=== PATIENT | female | born 1970 | race Caucasian/White ===

== ENCOUNTER 2017-10-04 10:03 | Outpatient (CLI) | payer BC | END 2017-10-04 10:04 | disposition home or self-care (01) | LOC: BICMAMMO 10:03 | PROVIDERS: ATTEND Family Medicine | DX: Z12.31 Encounter for screening mammogram for malignant neoplasm of breast (principal) | CPT/HCPCS: 77063; 77067 ==

== ENCOUNTER 2017-11-06 12:14 | Outpatient (CLI) | payer BC | END 2017-11-06 12:15 | disposition home or self-care (01) | LOC: BICRAD 12:14 | PROVIDERS: ATTEND Family Medicine | DX: R05 Cough (principal) | CPT/HCPCS: 71046 ==

== ENCOUNTER 2018-07-11 07:48 | Outpatient (CLI) | payer BC ==
--- NOTE | 2018-07-11 09:05 | ULT ---
SONOGRAM RIGHT UPPER QUADRANT: Date: 07/11/18 HISTORY: Right upper quadrant pain. FINDINGS: Gallbladder has a normal appearance. Common duct is 0.4 cm. Liver unremarkable without focal mass or intrahepatic biliary dilatation. No free fluid. IMPRESSION: No evidence of gallstones or biliary obstruction. POS: [facility]
== END 2018-07-11 07:49 | disposition home or self-care (01) ==
LOC: SCSULT 07:48
PROVIDERS: ATTEND Family Medicine
DX: R10.11 Right upper quadrant pain (principal)
CPT/HCPCS: 76700

== ENCOUNTER 2018-08-08 07:34 | Outpatient (CLI) | payer BC ==
--- NOTE | 2018-08-08 13:25 | NM ---
RADIONUCLIDE HEPATOBILIARY SCAN AND GALLBLADDER EJECTION FRACTION: Date: 08/08/18 HISTORY: Right upper quadrant pain. FINDINGS: Early images show physiologic uptake of radiotracer throughout the hepatic parenchyma. Gallbladder fi rst imaged at 5 minutes. Uptake is apparent within the small bowel at 7 minutes. After administration of 8 oz fatty meal, there is excretin of radiotracer from the gallbladder to the small bowel. Ejecti on fraction calculated at 100%. IMPRESSION: Normal hepatobiliary scan. Normal gallbladder ejection fraction. POS: [facility]
== END 2018-08-08 07:35 | disposition home or self-care (01) ==
LOC: NM 07:34
PROVIDERS: ATTEND Internal Medicine Gastroenterology
DX: R10.11 Right upper quadrant pain (principal)
CPT/HCPCS: 78227; A9537

== ENCOUNTER 2018-11-01 10:01 | Outpatient (CLI) | payer BC | END 2018-11-01 10:02 | disposition home or self-care (01) | LOC: BICMAMMO 10:01 | PROVIDERS: ATTEND Family Medicine | DX: Z12.31 Encounter for screening mammogram for malignant neoplasm of breast (principal) | CPT/HCPCS: 77063; 77067 ==

== ENCOUNTER 2019-07-02 10:43 | Inpatient (IN) | payer BC ==
[2019-07-02 12:05] LABS: Hemoglobin 11.5 g/dL (12.0-16.0); Mean Corpuscular HGB CONC 34.2 g/dL (32.0-36.0); Mean Corpuscular Hemoglobin 31.1 pg (27.0-31.0); Mean Corpuscular Volume 90.9 fL (78.0-98.0); Mean Platelet Volume 8.4 fL (7.4-10.4); Platelet Count 126 thou/uL (130-400); RBC Distribution Width 12.6 % (11.5-14.5); Red Blood Cell (RBC) Count 3.69 mill/uL (4.20-5.40); White Blood Cell (WBC) Count 18.3 thou/uL (4.8-10.8)
[2019-07-02 12:22] LABS: Band 39 % (5-11); Lymphocytes 9 % (21-51); MDiff Complete? YES; Monocytes 1 % (0-10); Neutrophil 51 % (42-75); Platelet Morphology Comment Appears Decreased; RBC Morphology Normal
[2019-07-02 12:29] LABS: ALT (SGPT) 29 U/L (8-55); AST (SGOT) 57 U/L (5-34); Albumin 3.5 g/dL (3.5-5.0); Alkaline Phosphatase 91 U/L (40-110); Anion Gap 16 mmol/L (10-20); BUN (Urea Nitrogen) 31 mg/dL (7.0-18.7); Calc. Creatinine Clearance 0 mL/min (70-130); Calcium 8.4 mg/dL (7.8-10.44); Carbon Dioxide 22 mmol/L (22-29); Chloride 97 mmol/L (98-107); Estimated GFR-MDRD 37; Globulin 3.7 g/dL (2.4-3.5); Glucose 122 mg/dL (70-105); Lipase 13 U/L (8-78); Potassium 3.1 mmol/L (3.5-5.1); Protein, Total 7.2 g/dL (6.0-8.3); Sodium 132 mmol/L (136-145)
[2019-07-02] MEDS ORDERED: MEROPENEM 1 GM/50 ML 1 GM in Premix Bag 1 BAG IVPB SCH (12:45)
[2019-07-02] MEDS ORDERED: Morphine 4 MG/ML VIAL ONE (12:49)
[2019-07-02] MEDS ORDERED: Ondansetron PF 4 MG/2 ML Vial ONE (12:49)
[2019-07-02 13:09] LABS: Bacteria/HPF 4+ HPF (None Seen); Bilirubin Negative (Negative); Blood, Urine 3+ (Negative); Clarity Turbid (Clear); Glucose, Urine (Dipstick) Normal (Negative); Leukocyte 500 Leu/uL (Negative); Nitrite Negative (Negative); Protein, Urine (Dipstick) 50 mg/dL (Neg-Trace); Squamous Epithelial 0-3 HPF (0-3); Urobilinogen Normal mg/dL (Less than 2); WBC/HPF 21-50 HPF (0-3)
--- NOTE | 2019-07-02 13:24 | CT ---
CT ABDOMEN AND PELVIS WITHOUT CONTRAST: 07/02/2019 PROVIDED CLINICAL HISTORY: Abdominal pain. FINDINGS: The visualized lung bases are free of significant opacity. There is a 1.1 cm inferior pole left renal calculus. No additional urinary tract calculi are evident. There is mild fullness of the left renal collecting system and mild asymmetric fullness of the left proximal ureter. There is a phlebolith involving the left mid abdomen, which is definitely separate f rom the ureter. There are fat stranding changes about the left kidney. The solid abdominal organs are suboptimally evaluated in the absence of IV contrast material but demo nstrate an otherwise unremarkable unenhanced CT appearance. There is no bowel dilatation, additional inflammatory fat stranding, free fluid or free air apparent. There is no evidence for appendicitis. There is a mixed density, fat-containing mass in the right adnexal region, measuring approximately 5. 4 cm, compatible with dermoid. The osseous structures demonstrate no concerning lytic or blastic lesions. IMPRESSION: 1. A 1.1 cm inferior pole left renal calculus. 2. Inflammatory changes involving the left kidney. Findings could relate to a recently passed calculu s, given the mild asymmetric renal pelvic and ureteral dilatation on the left. Other etiologies inclu ding infection should be considered. 3. A 5.4 cm right ovarian dermoid. Non-emergent PUTTIER consultation is recommended. POS: [facility]
--- NOTE | 2019-07-02 13:34 | RAD ---
PORTABLE CHEST: Date: 07/02/19 PROVIDED CLINICAL HISTORY: Infection. FINDINGS: Comparison with 11/06/17. Cardiac and mediastinal silhouette is within normal limits. No focal consolidation, pleural fluid, or pneumothorax apparent. IMPRESSION: No evidence for an acute cardiopulmonary process. POS: [facility]
--- NOTE | 2019-07-02 13:54 | PDOC.FPRHP ---
- History of Present Illness Chief Complaint: back pain, fever History of Present Illness: 48 y/o F no PMHx presents to the ED complaining of L back pain that radiates to her groin and associated fevers since Sunday. She reports that since November she has had abnormal menstrual bleeding that is heavier than usual and irregular, but it has never been associated with pain or fevers until now. She reports that she has been routinely passing blood clots. She said her fever got up to 101.9 and improved with ibuprofen. She got a pelvic and RUQ abd US done yesterday along with blood work. The pelvic US showed thickened endometrium to 1.6 cm with blood products. The RUQ US was normal. Blood work showed a leukocytosis. ED Course: She was evaluated in the ED and given 3L NS, morphine, zofran, meropenem. - Allergies/Adverse Reactions Allergies Allergy/AdvReac Type Severity Reaction Status Date / Time cephalexin [From Keflex] Allergy Verified 07/02/19 12:32 - Home Medications Medication Instructions Recorded Confirmed Type No Known 07/02/19 07/02/19 History - History PMHx: None PSHx: section x2 FHx: Father - colon cancer and kidney stones Social: Denies tobacco, EtOH, or drug use. - Review of Systems General: reports: fever/chills. denies: weight/appetite/sleep changes Eyes: denies: eye pain, vision changes ENT: denies: nasal congestion, rhinorrhea Respiratory: denies: cough, shortness of breath Cardiovascular: denies: chest pain, edema Gastrointestinal: reports: nausea, vomiting, abdominal pain Genitourinary: denies: dysuria, polyuria Skin: denies: rashes, lesions Musculoskeletal: denies: pain, swelling Neurological: denies: numbness, weakness Psychological: denies: anxiety, depression - Vital signs BP: 91/64, Pulse: 95, Resp: 18, Pain: 2, O2 sat: 100 on Room Air - Physical Exam Constitutional: NAD, awake, alert and oriented HEENT: normocephalic and atraumatic, conjunctiva clear, grossly normal vision, grossly normal hearing, other (dry mucous membranes) Neck: FROM, no LAD Heart: RRR, normal S1/S2, no murmurs/rubs/gallops, pulses present, no edema Lungs: CTAB, no respiratory distress, good air movement, no wheezing Abdomen: soft, no masses/distention, other (TTP in suprapubic and LLQ with + L CVAT) Musculoskeletal: normal structure, normal tone Neurological: no focal deficit, normal sensation Skin: good turgor, capillary refill <2 seconds Psychiatric: normal mood and affect, good judgment and insight FMR H&P: Results - Labs Result Diagrams: 07/02/19 11:43 07/02/19 11:43 Lab results: WBC 18.3 thou/uL (4.8-10.8) H 07/02/19 11:43 Hgb 11.5 g/dL (12.0-16.0) L 07/02/19 11:43 Hct 33.5 % (36.0-47.0) L 07/02/19 11:43 MCV 90.9 fL (78.0-98.0) 07/02/19 11:43 Plt Count 126 thou/uL (130-400) L 07/02/19 11:43 Band Neuts % (Manual) 39 % (5-11) H 07/02/19 11:43 Sodium 132 mmol/L (136-145) L 07/02/19 11:43 Potassium 3.1 mmol/L (3.5-5.1) L 07/02/19 11:43 Chloride 97 mmol/L (98-107) L 07/02/19 11:43 Carbon Dioxide 22 mmol/L (22-29) 07/02/19 11:43 BUN 31 mg/dL (7.0-18.7) H 07/02/19 11:43 Creatinine 1.50 mg/dL (0.6-1.1) H 07/02/19 11:43 Glucose 122 mg/dL (70-105) H 07/02/19 11:43 Lactic Acid 1.4 mmol/L (0.5-2.2) 07/02/19 11:43 Calcium 8.4 mg/dL (7.8-10.44) 07/02/19 11:43 Total Bilirubin 1.0 mg/dL (0.2-1.2) 07/02/19 11:43 AST 57 U/L (5-34) H 07/02/19 11:43 ALT 29 U/L (8-55) 07/02/19 11:43 Alkaline Phosphatase 91 U/L (40-110) 07/02/19 11:43 Serum Total Protein 7.2 g/dL (6.0-8.3) 07/02/19 11:43 Albumin 3.5 g/dL (3.5-5.0) 07/02/19 11:43 Lipase 13 U/L (8-78) 07/02/19 11:43 Urine Ketones 10 mg/dL (Negative) A 07/02/19 12:45 Urine Blood 3+ (Negative) A 07/02/19 12:45 Urine Nitrite Negative (Negative) 07/02/19 12:45 Ur Leukocyte Esterase 500 Efra/uL (Negative) A 07/02/19 12:45 Urine RBC 4-6 HPF (0-3) A 07/02/19 12:45 Urine WBC 21-50 HPF (0-3) A 07/02/19 12:45 Ur Squamous Epith Cells 0-3 HPF (0-3) 07/02/19 12:45 Urine Bacteria 4+ HPF (None Seen) A 07/02/19 12:45 - Radiology Interpretation CT scan - abdomen Status: report reviewed by me Additional comment: 1.1 cm L renal calculus in inferior pole. Inflammatory changes and dilation of L renal pelvis and ureter. 5.4 cm R ovarian dermoid cyst. FMR H&P: A/P - Problem List (1) Sepsis Current Visit: Yes Status: Acute Code(s): A41.9 - SEPSIS, UNSPECIFIED ORGANISM (2) Pyelonephritis Current Visit: Yes Status: Acute Code(s): N12 - TUBULO-INTERSTITIAL NEPHRITIS, NOT SPCF ACUTE OR CHRONIC (3) Abnormal uterine bleeding Current Visit: Yes Status: Acute Code(s): N93.9 - ABNORMAL UTERINE AND VAGINAL BLEEDING, UNSPECIFIED (4) Hyponatremia Current Visit: Yes Status: Acute Code(s): E87.1 - HYPO-OSMOLALITY AND HYPONATREMIA (5) Hypokalemia Current Visit: Yes Status: Acute Code(s): E87.6 - HYPOKALEMIA (6) LUX (acute kidney injury) Current Visit: Yes Status: Acute Code(s): N17.9 - ACUTE KIDNEY FAILURE, UNSPECIFIED (7) Kidney stone on left side Current Visit: Yes Status: Acute Code(s): N20.0 - CALCULUS OF KIDNEY - Plan Sepsis 2/2 Acute L Pyelonephritis s/p 3L NS and meropenem in the ED. UA consistent with infection. Pt appears to have passed a stone. -Consider urology consult if pt decompensates -BCx -UCx -Zosyn -LR @ 125 Abnormal Uterine Bleeding Pt with recent pelvic US showing endometrial thickening and presents with complaint of abnormal bleeding since November. -Consulted Dr. Bynum with [facility] SPECTROMETRY SPECIALIST -Endometrial biopsy -Pt has MASS SPECTROMETRY SPECIALIST consult outpt as well LUX Likely postrenal 2/2 obstructing stone that has now passed. Renal function has improved since yesterday. s/p 3L NS -Will check FeNa -LR @ 125 -Trend -Renally dose medications Hyponatremia Na 132 -Will check urine sodium and creatinine -Monitor Hypokalemia -Will replete and monitor -Check magnesium VTE ppx: SCD's Code Status: Full Disposition/LOS: Admit to Medical. LOS likely 2 days Addendum - Attending - Attending Attestation Date/Time: 07/02/19 0086 I personally evaluated the patient and discussed the management with Dr. Tavera. I agree with the History, Examination, Assessment and Plan documented above with any addition or exceptions noted below. Stable, LUX improved from yesterday. Will monitor status closely and consider uro/nephro consultations if indicated. BP's reassuring and her mentation is very much intact. EMB today with Dr. Bynum, appreciate his input.
--- NOTE | 2019-07-02 17:00 | PDOC.OP ---
Operative Note - Operative Note Operative Note: PRE-OP DIAGNOSIS: Abnormal Uterine Bleeding, Thickened endometrial stripe POST-OP DIAGNOSIS: Same PROCEDURE: endometrial biopsy Performing Physician: Ivelisse Tavera MD Supervising Physician: Moises Bynum MD, Jimbo Puri MD PROCEDURE: A timeout protocol was performed prior to initiating the procedure. Consented patient about procedure and consents were signed and placed on chart. Vaginal speculum was inserted, and the cervix was visualized. The cervix was cleansed with antiseptic solution. The device was inserted through the cervical canal, into the uterine cavity, and up to the fundus. The depth of the uterus was determined with the instrument The instrument was withdrawn as it was rotated. 3 passes were made and tissue placed in formalin and sent to pathology. Followup: The patient tolerated the procedure well without complications. Standard post-procedure care is explained and return precautions are given.
[2019-07-02] MEDS ORDERED: Ketorolac Tromethamine 30 MG/ML VIAL ONE (17:11)
[2019-07-02] MEDS ORDERED: Ondansetron PF 4 MG/2 ML Vial IVP PRN (18:42)
[2019-07-02] MEDS ORDERED: Ondansetron ODT 4 MG TAB SL PRN (18:42)
[2019-07-02] MEDS ORDERED: Piperacillin/Tazobactam 3.375 GM in Sodium Chloride 0.9% 100 ML IVPB SCH ×2 (18:45→23:59)
[2019-07-02] MEDS ORDERED: Acetaminophen 325 MG TAB ONE (18:50)
[2019-07-02] MEDS ORDERED: Potassium Chloride 20 MEQ TAB PO SCH (19:00)
[2019-07-02 19:11] LABS: Creatinine, Urine 47.35 mg/dL (47-110); Sodium, Urine Less than 20 mmol/L (Not Available)
[2019-07-02] MEDS ORDERED: Potassium Chloride 20 MEQ TAB ONE (20:20)
[2019-07-02] MEDS ORDERED: Piperacillin/Tazobactam 3.375 GM VIAL ONE (20:20)
[2019-07-03] MEDS: Lactated Ringer's 1,000 ML IV SCH ×4 (01:15→22:19)
[2019-07-03] MEDS ORDERED: Ondansetron ODT 4 MG TAB SL PRN (01:20)
[2019-07-03] MEDS ORDERED: Acetaminophen 325 MG TAB PO PRN (01:20)
[2019-07-03] MEDS ORDERED: Ondansetron PF 4 MG/2 ML Vial IVP PRN (01:20)
[2019-07-03 02:56] VITALS: BMI 36.4
[2019-07-03] MEDS: Piperacillin/Tazobactam 3.375 GM in Sodium Chloride 0.9% 100 ML IVPB SCH ×4 (03:42→21:31)
[2019-07-03 05:17] LABS: Anion Gap 9 mmol/L (10-20); BUN (Urea Nitrogen) 20 mg/dL (7.0-18.7); Calc. Creatinine Clearance 74 mL/min (70-130); Calcium 7.5 mg/dL (7.8-10.44); Carbon Dioxide 24 mmol/L (22-29); Chloride 103 mmol/L (98-107); Estimated GFR-MDRD 42; Glucose 144 mg/dL (70-105); Potassium 3.6 mmol/L (3.5-5.1); Sodium 132 mmol/L (136-145)
[2019-07-03 05:46] LABS: Band 22 % (5-11); Hemoglobin 9.2 g/dL (12.0-16.0); Lymphocytes 8 % (21-51); MDiff Complete? YES; Mean Corpuscular HGB CONC 33.6 g/dL (32.0-36.0); Mean Corpuscular Hemoglobin 30.9 pg (27.0-31.0); Mean Corpuscular Volume 91.9 fL (78.0-98.0); Mean Platelet Volume 8.2 fL (7.4-10.4); Monocytes 1 % (0-10); Neutrophil 69 % (42-75); Platelet Count 105 thou/uL (130-400); Platelet Morphology Comment Appears Decreased; RBC Distribution Width 12.9 % (11.5-14.5); Red Blood Cell (RBC) Count 2.99 mill/uL (4.20-5.40); White Blood Cell (WBC) Count 13.1 thou/uL (4.8-10.8)
--- NOTE | 2019-07-03 06:14 | PDOC.FM ---
- Subjective Subjective: Pt c/o left sided pain 2/10, radiating to groin. Pt c/o pain located periumbilical. States she still is feeling tired and "crumy," but slightly better. - Objective MAR Reviewed: Yes Vital Signs & Weight: Vital Signs (12 hours) Temp Pulse Resp BP Pulse Ox 07/03/19 03:33 100.2 F H 96 119/58 L 100 07/03/19 01:15 98 07/03/19 01:10 99.6 F 99 16 98 Weight Weight 93.349 kg I&O: 07/01/19 07/02/19 07/03/19 06:59 06:59 06:59 Output Total 550 Balance -550 Result Diagrams: 07/03/19 10:26 07/03/19 04:49 Phys Exam - Physical Examination Constitutional: NAD HEENT: PERRLA, moist MMs, sclera anicteric Neck: no nodes, no JVD, supple, full ROM Respiratory: no wheezing, no rales, no rhonchi, clear to auscultation bilateral Cardiovascular: RRR, no rub 2/6 systolic murmur Gastrointestinal: soft, no distention, positive bowel sounds Left sided abdominal pain. Periumbilical navarro point + L Musculoskeletal: no edema, pulses present L CVA Tenderness. Neurological: non-focal, normal sensation, moves all 4 limbs Lymphatic: no nodes Psychiatric: normal affect, A&O x 3 Skin: no rash, normal turgor, cap refill <2 seconds Dx/Plan (1) Pyelonephritis Code(s): N12 - TUBULO-INTERSTITIAL NEPHRITIS, NOT SPCF ACUTE OR CHRONIC Status: Acute (2) Sepsis Code(s): A41.9 - SEPSIS, UNSPECIFIED ORGANISM Status: Acute (3) LUX (acute kidney injury) Code(s): N17.9 - ACUTE KIDNEY FAILURE, UNSPECIFIED Status: Acute (4) Abnormal uterine bleeding Code(s): N93.9 - ABNORMAL UTERINE AND VAGINAL BLEEDING, UNSPECIFIED Status: Acute (5) Hypokalemia Code(s): E87.6 - HYPOKALEMIA Status: Acute (6) Hyponatremia Code(s): E87.1 - HYPO-OSMOLALITY AND HYPONATREMIA Status: Acute (7) Kidney stone on left side Code(s): N20.0 - CALCULUS OF KIDNEY Status: Acute - Plan Plan: 1. Sepsis 2/2 Acute L Pyelonephritis - s/p 3L NS and meropenem in the ED. UA consistent with infection. Pt appears to have passed a stone. -Consider urology consult if pt decompensates -BCx, gram - rods -UCx, presumptive klebsiella and enterobacter -Zosyn -LR @ 125 -Procal 8.84 2. Abnormal Uterine Bleeding -Pt with recent pelvic US showing endometrial thickening and presents with complaint of abnormal bleeding since November. -Consulted Dr. Bynum with DENTURES LAB TECHNICIAN -Endometrial biopsy pending, performed 07/02. -Pt has DENTURES LAB TECHNICIAN consult outpt as well 3. LUX - Renal function has improved since yesterday. s/p 3L NS -FeNa 0.4%, consistent with Pre-Renal, most likely 2/2 sepsis -LR @ 125 -Cr 1.34, improved with fluids -Renally dose medications 4. Hyponatremia -Na 132 -Will check urine sodium and creatinine -Monitor 5. Hypokalemia -Will replete and monitor, K 3.6 on 07/03 -magnesium 1.8 on 07/03 VTE ppx: SCD's Code Status: Full Disposition/LOS: Stable, Admitted to Medical. LOS likely 2 days Addendum - Attending - Attending Attestation Date/Time: 07/03/19 3545 I personally evaluated the patient and discussed the management with Dr. Whitley. I agree with the History, Examination, Assessment and Plan documented above with any addition or exceptions noted below. The patient is feeling a little better. She has 2/2 blood culture positive and urine culture is positive. Will continue IV antibiotics until sensitivities return. She has a history of c-diff remotely and is concerned with her current antibiotic use. She has had no diarrhea. EMB results pending.
[2019-07-03] MEDS: Acetaminophen 325 MG TAB PO PRN ×2 (06:28→15:00)
[2019-07-03 10:09] LABS: Iron 10 ug/dL (50-170); Iron Binding Capacity, Total 209 mcg/dL (265-497)
[2019-07-03 11:04] LABS: Hemoglobin 9.2 g/dL (12.0-16.0); Mean Corpuscular HGB CONC 33.8 g/dL (32.0-36.0); Mean Corpuscular Volume 91.9 fL (78.0-98.0); Mean Platelet Volume 8.5 fL (7.4-10.4); Platelet Count 100 thou/uL (130-400); Red Blood Cell (RBC) Count 2.96 mill/uL (4.20-5.40); White Blood Cell (WBC) Count 12.8 thou/uL (4.8-10.8)
[2019-07-03 11:54] LABS: Band 27 % (5-11); Lymphocytes 8 % (21-51); MDiff Complete? YES; Monocytes 3 % (0-10); Myelocyte 1 % (0-0); Neutrophil 60 % (42-75); Platelet Morphology Comment Appears Decreased; Polychromasia SLIGHT = 2-3 cells (100X) (0-2/hpf)
[2019-07-03 13:50] LABS: Ferritin 184.74 ng/mL (10-291)
[2019-07-03] MEDS: Ferrous Sulfate 325 MG TAB PO SCH (16:53)
[2019-07-04] MEDS: Piperacillin/Tazobactam 3.375 GM in Sodium Chloride 0.9% 100 ML IVPB SCH ×2 (03:55→09:02)
[2019-07-04] MEDS: Acetaminophen 325 MG TAB PO PRN ×3 (04:21→18:04)
[2019-07-04] MEDS: Lactated Ringer's 1,000 ML IV SCH (04:22)
[2019-07-04 04:39] LABS: #Eosinphils 0.1 thou/uL (0.0-0.7); #Lymphocytes 1.4 thou/uL (1.20-3.40); #Neutrophils 8.9 thou/uL (1.40-6.50); %Basophils 0.3 % (0.0-1.0); %Eosinophils 1.2 % (0.0-10.0); %Lymphocytes 12.1 % (21.0-51.0); %Monocytes 8.6 % (0.0-10.0); %Neutrophils 77.7 % (42.0-75.0); Hemoglobin 9.5 g/dL (12.0-16.0); Mean Corpuscular HGB CONC 34.1 g/dL (32.0-36.0); Mean Corpuscular Hemoglobin 31.7 pg (27.0-31.0); Mean Corpuscular Volume 92.8 fL (78.0-98.0); Mean Platelet Volume 8.6 fL (7.4-10.4); Platelet Count 125 thou/uL (130-400); RBC Distribution Width 13.2 % (11.5-14.5); Red Blood Cell (RBC) Count 3.01 mill/uL (4.20-5.40); White Blood Cell (WBC) Count 11.4 thou/uL (4.8-10.8)
[2019-07-04 04:54] LABS: Anion Gap 10 mmol/L (10-20); BUN (Urea Nitrogen) 12 mg/dL (7.0-18.7); Calc. Creatinine Clearance 83 mL/min (70-130); Calcium 7.9 mg/dL (7.8-10.44); Carbon Dioxide 23 mmol/L (22-29); Chloride 102 mmol/L (98-107); Estimated GFR-MDRD 48; Glucose 105 mg/dL (70-105); Potassium 3.4 mmol/L (3.5-5.1); Sodium 132 mmol/L (136-145)
--- NOTE | 2019-07-04 05:51 | PDOC.FM ---
- Subjective Subjective: Pt states she became congested nasally and in upper airway overnight. Denies heart burn. States she has has nausea. Feeling slightly better from yesterday. No acute overnight events. L- flank still present, but improving. - Objective MAR Reviewed: Yes Vital Signs & Weight: Vital Signs (12 hours) Temp Pulse Resp BP BP Pulse Ox 07/04/19 05:03 100.1 F H 07/04/19 04:00 102.8 F H 90 18 102/54 L 93 L 07/04/19 00:00 99.6 F 102 H 18 116/58 L 93 L 07/03/19 20:00 97 07/03/19 19:59 99.1 F 88 16 96/55 L 97 Weight Weight 93.349 kg I&O: 07/02/19 07/03/19 07/04/19 06:59 06:59 06:59 Intake Total 300 1700 Output Total 550 Balance -250 1700 Result Diagrams: 07/04/19 04:17 07/04/19 04:17 Phys Exam - Physical Examination Constitutional: NAD HEENT: PERRLA, moist MMs, sclera anicteric Neck: no nodes, no JVD, supple, full ROM Respiratory: no wheezing, no rales, no rhonchi, clear to auscultation bilateral Cardiovascular: RRR, no rub soft systolic murmur Gastrointestinal: soft, non-tender, no distention, positive bowel sounds Musculoskeletal: no edema, pulses present L- CVA tenderness. Neurological: non-focal, normal sensation, moves all 4 limbs Psychiatric: normal affect, A&O x 3 Skin: no rash, normal turgor, cap refill <2 seconds Dx/Plan (1) Pyelonephritis Code(s): N12 - TUBULO-INTERSTITIAL NEPHRITIS, NOT SPCF ACUTE OR CHRONIC Status: Acute (2) Sepsis Code(s): A41.9 - SEPSIS, UNSPECIFIED ORGANISM Status: Acute (3) LUX (acute kidney injury) Code(s): N17.9 - ACUTE KIDNEY FAILURE, UNSPECIFIED Status: Acute (4) Abnormal uterine bleeding Code(s): N93.9 - ABNORMAL UTERINE AND VAGINAL BLEEDING, UNSPECIFIED Status: Acute (5) Hypokalemia Code(s): E87.6 - HYPOKALEMIA Status: Acute (6) Hyponatremia Code(s): E87.1 - HYPO-OSMOLALITY AND HYPONATREMIA Status: Acute (7) Kidney stone on left side Code(s): N20.0 - CALCULUS OF KIDNEY Status: Acute - Plan Plan: 1. Sepsis 2/2 Acute L Pyelonephritis - s/p 3L NS and meropenem in the ED. UA consistent with infection. Pt appears to have passed a stone. -Consider urology consult if pt decompensates -BCx, gram - rods -UCx,klebsiella and enterobacter , Sensitivities: I-Nitrofurantoin. -Zosyn -LR @ 125 -Procal 8.84-> 6.27->4.18 2. Abnormal Uterine Bleeding -Pt with recent pelvic US showing endometrial thickening and presents with complaint of abnormal bleeding since November. -Consulted Dr. Bynum with ACCOUNT SUPPORT SPECIALIST -Endometrial biopsy pending, performed 07/02. -Pt has ACCOUNT SUPPORT SPECIALIST consult outpt as well 3. LUX - Renal function has improved since yesterday. s/p 3L NS -FeNa 0.4%, consistent with Pre-Renal, most likely 2/2 sepsis -LR @ 125 -Cr 1.34, improved with fluids, 1.19 -Renally dose medications 4. Hyponatremia -Na 132 -Will check urine sodium and creatinine -Monitor 5. Hypokalemia -Will replete and monitor, K 3.6 on 07/03 -magnesium 1.8 on 07/03 6. Normocytic Anemia: - Iron 10, TIBC low, Ferritin normal - Iron PO, BID VTE ppx: SCD's Code Status: Full Disposition/LOS: Stable, Admitted to Medical. LOS likely 2 days Addendum - Attending - Attending Attestation Date/Time: 07/04/19 6259 I personally evaluated the patient and discussed the management with Dr. Whitley. I agree with the History, Examination, Assessment and Plan documented above with any addition or exceptions noted below. Pt with klebsiella bacteremia 2/2 pyelonephritis. She has still had fever overnight but is feeling better overall. Fever are expected. Will transition to oral antibiotics.
[2019-07-04] MEDS ORDERED: Ferrous Sulfate 325 MG TAB PO SCH (08:00)
[2019-07-04] MEDS ORDERED: Sodium Chloride Nasal 15 GM TUBE EA NARE PRN (08:05)
[2019-07-04] MEDS ORDERED: Benzonatate 100 MG CAP PO PRN (09:01)
[2019-07-04] MEDS: Ferrous Sulfate 325 MG TAB PO SCH ×2 (09:02→18:03)
[2019-07-04] MEDS: Fluticasone Propionate Nasal Spray 16 gm Bottle NASAL SCH (09:03)
[2019-07-04] MEDS ORDERED: Potassium Chloride 20 MEQ TAB PO SCH (10:00)
[2019-07-04] MEDS: Morphine 2 MG/ML SYRINGE SLOW IVP PRN (10:02)
--- NOTE | 2019-07-05 05:30 | PDOC.FM ---
- Subjective Subjective: Mrs. Eri Arzate was resting in bed at the time of the evaluation. She complained of a severe headache, similar to migraines that she had experienced in the past, and asked that the lights be kept off. She denied any overnight events, changes in vision, feelings of facial drooping, chest pain, shortness of breath or weakness in any of her extremities. - Objective Vital Signs & Weight: Vital Signs (12 hours) Temp Pulse Resp BP Pulse Ox 07/05/19 03:55 99.4 F 96 16 128/58 L 93 L 07/05/19 00:00 98.5 F 99 16 128/60 95 07/04/19 20:00 99.5 F 95 18 119/69 96 07/04/19 17:55 100.3 F H Weight Weight 93.349 kg I&O: 07/03/19 07/04/19 07/05/19 06:59 06:59 06:59 Intake Total 300 3995 1600 Output Total 550 Balance -250 3995 1600 Result Diagrams: 07/05/19 04:56 07/05/19 04:56 Phys Exam - Physical Examination Constitutional: NAD (Patient admitted to photophobia) HEENT: PERRLA, moist MMs, sclera anicteric, oral pharynx no lesions Neck: supple, full ROM Respiratory: no wheezing, no rales, no rhonchi, clear to auscultation bilateral Cardiovascular: RRR, no significant murmur, no rub Gastrointestinal: soft, non-tender, no distention Musculoskeletal: no edema Neurological: non-focal, moves all 4 limbs Psychiatric: normal affect Dx/Plan - Plan Plan: 1. Sepsis 2/2 Acute L Pyelonephritis -s/p 3L NS and Meropenem in ED - imaging revealed left renal calculi at inferior pole, right renal cyst -Pt appears to have passed a left renal calculi -Blood Culture: Klebsiella x2 -Urine Culture: Klebsiella and Enterobacter (Sensitivities: I-Nitrofurantoin) -Zosyn, transitioned to oral Levofloxacin on 07/04 -Procal 8.84-> 6.27-> 4.18 2. Abnormal Uterine Bleeding -Pt with recent pelvic US showing endometrial thickening and presents with complaint of abnormal bleeding since November -Consulted Dr. Bynum with FRONT END SPECIALIST -Endometrial Biopsy performed on 07/02 inconclusive -F/U as outpatient with [facility], will require referral to [facility] [place] 3. LUX, resolved -FeNa: 0.4%, consistent with Pre-Renal, most likely 2/2 Sepsis -Renal function has greatly improved since admission -3 L NS in ED, followed by LR @ 125 ml/hr - DC'd -Cr: 0.9 (07/05/19) 4. Hyponatremia -Na: 133 (07/05/19) -Will continue to monitor 5. Hypokalemia, resolved -K: 3.5 -M.8 6. Normocytic Anemia -Fe: 10 / TIBC: Low / Ferritin: WNL -Continue to supplement with Fe 325 mg PO BID following DC VTE PPx: SCD's Code Status: Full Dispo: Stable, tolerating PO intake and medication well. Treat migraine headache w/ Sumatriptain 6 mg SC and consider additional dose if migraine headache does not resolve in 2H. DC on Levofloxacin 750 mg PO x14 for sepsis 2/ 2 pyelonephritis. DC on Fe 325 mg PO BID x14 for normocytic anemia. Ensure f/u with [facility] / OBGYN for AUB w/ thickened endometrium (1.6 cm). LOS: < 12H Addendum - Attending - Attending Attestation Date/Time: 07/05/19 1150 I personally evaluated the patient and discussed the management with Dr. Lozano. I agree with the History, Examination, Assessment and Plan documented above with any addition or exceptions noted below. The patient developed a severe headache this morning that is similar to previous migraines. She has no neurological changes. Imitrex has worked in the past for her, will give a dose. Remains on levaquin for klebsiella bacteremia 2/2 pyelonephritis. Will need outpt supervisor lens generating follow-up.
[2019-07-05 05:38] LABS: Band 5 % (5-11); Hemoglobin 9.4 g/dL (12.0-16.0); Lymphocytes 8 % (21-51); MDiff Complete? YES; Mean Corpuscular HGB CONC 33.7 g/dL (32.0-36.0); Mean Corpuscular Hemoglobin 31.7 pg (27.0-31.0); Mean Corpuscular Volume 94.1 fL (78.0-98.0); Mean Platelet Volume 8.8 fL (7.4-10.4); Monocytes 5 % (0-10); Neutrophil 82 % (42-75); Platelet Count 181 thou/uL (130-400); Platelet Morphology Comment Appears Adequate; RBC Distribution Width 13.2 % (11.5-14.5); Red Blood Cell (RBC) Count 2.96 mill/uL (4.20-5.40); Target Cells SLIGHT = 2-5 cells (100X) (0-1/hpf); White Blood Cell (WBC) Count 12.7 thou/uL (4.8-10.8)
[2019-07-05 05:40] LABS: Anion Gap 10 mmol/L (10-20); BUN (Urea Nitrogen) 9 mg/dL (7.0-18.7); Calc. Creatinine Clearance 106 mL/min (70-130); Calcium 8.1 mg/dL (7.8-10.44); Carbon Dioxide 26 mmol/L (22-29); Chloride 101 mmol/L (98-107); Estimated GFR-MDRD 63; Glucose 105 mg/dL (70-105); Potassium 3.5 mmol/L (3.5-5.1); Sodium 133 mmol/L (136-145)
[2019-07-05] MEDS: Morphine 2 MG/ML SYRINGE SLOW IVP PRN (06:43)
[2019-07-05] MEDS: Acetaminophen 325 MG TAB PO PRN (06:43)
[2019-07-05 07:38] VITALS: BP 127/60
[2019-07-05] MEDS: Fluticasone Propionate Nasal Spray 16 gm Bottle NASAL SCH (08:43)
[2019-07-05] MEDS: Ferrous Sulfate 325 MG TAB PO SCH (08:43)
[2019-07-05] MEDS ORDERED: SUMAtriptan Succinate 6 MG/0.5 ML VIAL SC SCH (09:00)
[2019-07-05 11:48] VITALS: TEMP 98.5
--- NOTE | 2019-07-05 12:03 | EKG ---
Test Reason : Blood Pressure : / mmHG Vent. Rate : 097 BPM Atrial Rate : 097 BPM P-R Int : 166 ms QRS Dur : 084 ms QT Int : 338 ms P-R-T Axes : 051 045 015 degrees QTc Int : 429 ms Poor data quality, interpretation may be adversely affected Normal sinus rhythm Normal ECG Confirmed by OBI OCHOA ([id number]), editor producer JANELLE COLLIER ([id number]) on 07/05/2019 12:02:38 PM Referred By: Confirmed By:OBI OCHOA
--- NOTE | 2019-07-06 13:43 | DIS ---
DATE OF ADMISSION: 07/02/2019 DATE OF DISCHARGE: 07/05/2019 CONSULTS: None. PROCEDURES: Abdominal ultrasound demonstrating mild hepatomegaly with no gallbladder calculus and a common bile duct that was normal in caliber. Pelvis ultrasound demonstrating nonspecific thickening of the uterine endometrium and heterogeneous material within demonstrating possible blood products. Abdominal pelvis CT scan demonstrating a 1.1 cm inferior pole left renal calculus and a 5.4 fat-containing mass in the right kidney, possibly of dermoid origin. Chest x-ray demonstrating no acute cardiopulmonary processes. Endometrial biopsy with subsequent pathology demonstrating majority of blood clots with minute fragments of stromal breakdown consisting mostly of dark red hemorrhagic tissue and mucoid material. PRIMARY DIAGNOSIS: Sepsis secondary to acute left-sided pyelonephritis. SECONDARY DIAGNOSES: Abnormal uterine bleeding, acute kidney injury, hyponatremia, hypokalemia, normocytic, anemia, and migraine headache. DISCHARGE MEDICATIONS: 1. Ferrous sulfate 325 mg p.o. b.i.d. 2. Levofloxacin 750 mg p.o. daily. 3. Sumatriptan succinate 50 mg p.o. q.2 p.r.n., not to exceed 200 mg per day. DISCONTINUED MEDICATIONS: 1. Acetaminophen 650 mg. 2. Tessalon Perles 100 mg. 3. Ferrous sulfate 325 mg. 4. Fluticasone 1 g nasal spray. 5. Levofloxacin 750 mg. 6. Morphine sulfate 2 mg. 7. Zofran 4 mg. 8. Sumatriptan succinate 6 mg. HISTORY OF PRESENT ILLNESS AND HOSPITAL COURSE: Ms. Eri Arzate is a 48-year-old female with no significant past medical history, presents to the ED complaining of left-sided back pain that radiates to her groin with associated fever since Sunday. She reported that since November she has had abnormal menstrual bleeding that is heavier than usual and regular, but has never been associated with pain or fevers until now. She also reports she has been routinely passing clots. Per the patient, her fever reached a max temperature of 101.9 and improved with ibuprofen. Pelvic and right upper quadrant abdominal ultrasounds performed in the ED demonstrated results as listed previously in the note. Pelvic ultrasound was worrisome for endometrial thickening to approximately 1.6 cm with blood products noted throughout. Blood work showed leukocytosis. The patient was started on levofloxacin p.o. daily and was able to tolerate well for treatment of acute pyelonephritis. Vital signs on discharge, temperature 98.5, pulse 83, blood pressure 127/60, respiratory rate 16, O2 saturation 98% on room air. White blood cell count 12.7, hemoglobin 9.4, hematocrit 27.8, platelets 181. Sodium 133, potassium 3.5, chloride 101, carbon dioxide 26, BUN 9, creatinine 0.94, improved from 1.19, glucose 105, iron 10, total iron binding capacity 209, ferritin 185. Procalcitonin initially peaked at 6.27, but was 1.83 on discharge. Urine was significant for being turbid with +3 blood, abnormal leukocyte esterase, abnormal red blood cells, abnormal white blood cells, and +4 bacteria. DISPOSITION: Stable. DISCHARGE INSTRUCTIONS: 1. Location: Home. 2. Diet: Heart healthy. 3. Activity: Ad jos. 4. Followup: The patient was advised to take levofloxacin 750 mg p.o. for 14 days for treatment of her acute left-sided pyelonephritis, most likely secondary to renal calculi. However, during her workup, it was noted that she had an endometrial width of 1.6 cm, which will require workup for her abnormal uterine bleeding. The patient was advised to follow up with [facility] and then most likely receive referral to [facility]. The patient was also discharged with ferrous sulfate for apparent iron deficiency anemia. Additionally, prior to discharge, the patient developed a severe migraine headache. The patient stated that she has a history of complex migraines dating back to the mid s. She was given one dose of sumatriptan in-house with a second dose following 2 hours later. On discharge, she was given a 14-day supply of sumatriptan p.o. to be taken if her migraines returned. Job ID: [id number]
== END 2019-07-05 14:50 | disposition home or self-care (01) | DRG 854 ==
LOC: ERS 10:43 → ERHOLD 14:18 → ONC 07-03 01:27
PROVIDERS: ADMIT Emergency Medicine; ATTEND Emergency Medicine
PROC: 0UDB7ZX Extraction of Endometrium, Via Natural or Artificial Opening, Diagnostic (ICD-10-PCS; principal; 2019-07-02)
DX: A41.89 Other specified sepsis (principal); N17.9 Acute kidney failure, unspecified; E87.1 Hypo-osmolality and hyponatremia; N10 Acute pyelonephritis; N93.9 Abnormal uterine and vaginal bleeding, unspecified; E87.6 Hypokalemia; N20.0 Calculus of kidney; G43.909 Migraine, unspecified, not intractable, without status migrainosus; B96.1 Klebsiella pneumoniae [K. pneumoniae] as the cause of diseases classified elsewhere; D50.9 Iron deficiency anemia, unspecified
CPT/HCPCS: 36415; 71045; 74176; 76700; 76856; 80048; 80053; 81001; 81003; 81015; 82570; 82728; 83001; 83002; 83540; 83550; 83605; 83690; 83735; 83930; 83935; 84145; 84300; 84443; 85025; 85060; 87040; 87077; 87086; 87149; 87186; 88305; 93005; 96361; 96365; 96366; 96367; 96375; J1885; J2185; J2270; J2405; J2543; J3030; J3490

== ENCOUNTER 2019-09-03 13:12 | Outpatient (CLI) | payer BC ==
[~2019-09-03 13:12] MED LIST: Iopamidol-370 76% 500 ML 1 ML ONE
--- NOTE | 2019-09-03 16:59 | CT ---
CT ABDOMEN AND PELVIS WITH AND WITHOUT CONTRAST: Date: 09/03/19 HISTORY: Renal calculi, dermoid cyst. Comparison with noncontrasted CT scan of 07/02/19. FINDINGS: The lung bases are clear. There is a 13 mm cyst in the medial aspect of the dome of the liver. Another couple of tiny low densi ty lesions are seen in the liver, likely cysts. No calcified gallstones are noted. The spleen, pancreas, and adrenal glands are normal. There is severe left-sided hydroureteronephrosis due to an 8 mm calculus in the left distal ureter pr oximal to the UVJ, with delayed excretion on the left compared to the right. A small low density lesi on in the right kidney is likely a cyst. No calculi seen in the either kidney, right ureter, or the u rinary bladder. No right-sided hydroureteronephrosis is seen. No free air, free fluid, or lymphadenopathy seen in the abdomen or pelvis. Uterus and ovaries are pre sent. A 3 cm right-sided ovarian dermoid is again noted. The small bowel loops are not abnormally dilated. There is no evidence of aneurysmal dilatation of th e abdominal aorta. There are degenerative changes in the spine. IMPRESSION: 8 mm left distal ureteric calculus causing severe obstructive uropathy. POS: [facility]
== END 2019-09-03 13:13 | disposition home or self-care (01) ==
LOC: BICCT 13:12
PROVIDERS: ATTEND Urology
DX: N20.0 Calculus of kidney (principal); D36.9 Benign neoplasm, unspecified site; N20.1 Calculus of ureter; N13.9 Obstructive and reflux uropathy, unspecified; Z86.19 Personal history of other infectious and parasitic diseases
CPT/HCPCS: 74178; Q9967

== ENCOUNTER 2019-09-04 10:59 | Outpatient (CLI) | payer BC ==
[2019-09-04 12:47] LABS: Hemoglobin 10.5 g/dL (12.0-16.0); Mean Corpuscular Hemoglobin 28.5 pg (27.0-31.0); Mean Corpuscular Volume 89.2 fL (78.0-98.0); Mean Platelet Volume 7.2 fL (7.4-10.4); Platelet Count 469 thou/uL (130-400); RBC Distribution Width 13.5 % (11.5-14.5); Red Blood Cell (RBC) Count 3.67 mill/uL (4.20-5.40); White Blood Cell (WBC) Count 5.8 thou/uL (4.8-10.8)
[2019-09-04 13:04] LABS: Anion Gap 12 mmol/L (10-20); BUN (Urea Nitrogen) 13 mg/dL (7.0-18.7); Calc. Creatinine Clearance 0 mL/min (70-130); Calcium 9.5 mg/dL (7.8-10.44); Carbon Dioxide 26 mmol/L (22-29); Chloride 101 mmol/L (98-107); Estimated GFR-MDRD 47; Glucose 85 mg/dL (70-105); Potassium 3.3 mmol/L (3.5-5.1); Sodium 136 mmol/L (136-145)
[2019-09-04 13:06] LABS: Prothrombin Time 12.9 SEC (12.0-14.7)
[2019-09-04 13:07] LABS: BHCG - Serum Negative (NEGATIVE); PTT 35.2 SEC (22.9-36.1); Pregs Control Background? CLEAR/WHITE (CLR/WHITE); Pregs Control Bar Appear? YES (CONTROL BAR)
--- NOTE | 2019-09-05 17:56 | EKG ---
Test Reason : Blood Pressure : / mmHG Vent. Rate : 069 BPM Atrial Rate : 069 BPM P-R Int : 156 ms QRS Dur : 078 ms QT Int : 368 ms P-R-T Axes : 026 043 028 degrees QTc Int : 394 ms Normal sinus rhythm Cannot rule out Anterior infarct , age undetermined Abnormal ECG Confirmed by Yvrose PANTOJA ([id number]) on 09/05/2019 5:55:47 PM Referred By: BETHEL Confirmed By:Yvrose PANTOJA
== END 2019-09-04 11:00 | disposition home or self-care (01) ==
LOC: LABBT 10:59
PROVIDERS: ATTEND Urology
DX: Z01.818 Encounter for other preprocedural examination (principal); N20.0 Calculus of kidney; M54.5 Low back pain; E66.9 Obesity, unspecified; G43.909 Migraine, unspecified, not intractable, without status migrainosus; N80.9 Endometriosis, unspecified; D36.9 Benign neoplasm, unspecified site; R94.31 Abnormal electrocardiogram [ECG] [EKG]; Z86.19 Personal history of other infectious and parasitic diseases
CPT/HCPCS: 80048; 84703; 85027; 85610; 85730; 93005; 93010

== ENCOUNTER 2019-09-05 09:33 | Day surgery (SDC) | payer BC ==
[2019-09-04 12:29] VITALS: BMI 33.8
[2019-09-05] MEDS ORDERED: Levofloxacin 500 mg/D5W 100 ml Premix Bag ONE (10:09)
[2019-09-05] MEDS ORDERED: PROPOFOL 200 MG/20 ML VIAL ONE ×2 (10:23→10:25)
[2019-09-05] MEDS ORDERED: Rocuronium Bromide 10 MG/ML (10ML VIAL) ONE (10:23)
[2019-09-05] MEDS ORDERED: Dexamethasone 20 MG/5 ML VIAL ONE (10:23)
[2019-09-05] MEDS ORDERED: Ondansetron PF 4 MG/2 ML Vial ONE (10:23)
[2019-09-05] MEDS ORDERED: Glycopyrrolate 0.2 MG/ML 5 ML SYRINGE ONE (10:23)
[2019-09-05] MEDS ORDERED: PHENYLEPHRINE-NS 100 MCG/ML 10 ML SYRINGE ONE (10:23)
[2019-09-05] MEDS ORDERED: Lidocaine 1% PF 5 ML VIAL ONE (10:23)
--- NOTE | 2019-09-05 10:30 | RAD ---
EXAM: Single view of the abdomen HISTORY: Preoperative radiograph. Kidney stones. COMPARISON: CT abdomen/pelvis 09/03/2019 FINDINGS: Single view of the abdomen shows a nonspecific, nonobstructive bowel gas pattern. Multiple phleboliths are seen in the pelvis. A 9 mm calcification in the left pelvis represents calcific lesions seen in the distal ureter on prior CT. The bones are unremarkable. IMPRESSION: Left distal ureteral calcification.
[2019-09-05] MEDS ORDERED: Fentanyl 100 MCG/2 ML VIAL ONE (10:58)
[2019-09-05] MEDS ORDERED: Iothalamate Meglumine 60% 50 ML VIAL FS ONE (11:29)
[2019-09-05] MEDS ORDERED: Phenazopyridine HCl 97.5 MG TABLET ONE (13:30)
[2019-09-05] MEDS ORDERED: Oxybutynin 5 MG TAB ONE (13:30)
--- NOTE | 2019-09-05 13:32 | RAD ---
EXAM: Retrograde IVP HISTORY: Kidney stones COMPARISON: None FINDINGS/IMPRESSION: Limited intraoperative fluoroscopic views of the retrograde IVP were submitted f or interpretation. There is moderate left hydronephrosis. No obvious filling defects are seen. Eventually, a left double-J ureteral stent is placed in good position.
[2019-09-05] MEDS ORDERED: diphenhydrAMINE 25 MG CAP ONE (14:10)
[2019-09-05] MEDS ORDERED: Hydrocerin (Eucerin) Cream 120 gm Jar TOP SCH (14:30)
--- NOTE | 2019-09-05 15:07 | OP ---
DATE OF PROCEDURE: 09/05/2019 PREOPERATIVE DIAGNOSES: 1. A 48-year-old female with history of Klebsiella urosepsis, July 2019. 2. History of left 1 cm lower pole stone with migration into the distal ureter. POSTOPERATIVE DIAGNOSES: 1. A 48-year-old female with history of Klebsiella urosepsis, July 2019. 2. History of left 1 cm lower pole stone with migration into the distal ureter. PROCEDURES PERFORMED: 1. Cystoscopy. 2. Dilation of the left distal ureter. 3. Retrograde pyelogram. 4. Ureteroscopy. 5. Laser lithotripsy. 6. Basket extraction of stone debris. 7. 6 x 24 double-J ureteral stent placement with distal tail in situ. ANESTHESIA: General. COMPLICATIONS: None apparent. DISPOSITION: To recovery room in stable condition. SPECIMEN: Stone for chemical analysis. INDICATIONS FOR THE PROCEDURE AND HISTORY: Ms. Hwang is a pleasant 48-year- old female who was referred to [place] by Dr. Espinoza. She was admitted in July due to Klebsiella urosepsis and CT in-house demonstrated a 1 cm left lower pole stone that was nonobstructing. She was referred to me for history of kidney stone and recent urosepsis. I did do a further CT scan, she had vague left lower quadrant abdominal discomfort. CT demonstrated the 10 mm stone migrated into the distal ureter with hydroureteronephrosis. Stone does measure dense over [address] She presents for ureteroscopy and laser lithotripsy. Repeat urine culture demonstrating no persistent Klebsiella of concern. She has been provided prophylactic Levaquin prophylactically. Risks and complications and indications for the procedure has been reviewed with the patient including, but not limited to, bleeding, pain, infection, injury to adjacent organs, urosepsis, possible secondary procedure, stricture formation, ureteral, bladder, renal injury. All questions answered to her satisfaction and she desired to proceed. DESCRIPTION OF PROCEDURE: After an informed consent was signed, the patient was taken to the operating room, placed in a dorsal lithotomy position with the genital area prepped and draped in the usual surgical sterile fashion. A 21-Occitan cystoscope was utilized. She was provided broad-spectrum antibiotics preprocedure as well. We entered the bladder, which demonstrated no significant debris or stone. Open-ended catheter was utilized to intubate the left UO. We gently opacified the collecting system demonstrating severe hydronephrosis and tortuosity of the proximal ureter consistent with high-grade obstruction due to a large stone. I was able to pass a 0.035 Sensor wire without significant issues into the left upper pole. At this time, using a [employer] 12-Occitan balloon dilator, we dilated the intramural ureter. Adequate pressure was held for about 2 minutes and we subsequently deflated it and was able to advance the rigid ureteroscope without significant issues. There was some bullous edema at the level of the point of the obstructing stone in the distal ureter. This was about 4 to 5 cm proximal to the left UO. The stone was easily engaged and using a 365 micron laser fiber at 1.0 joules, we dusted the stone into multiple fragmented debris. At the end of the procedure, we basketed the stone fragments that were amendable. I did pass the ureteroscope without any issues to the proximal ureter and no further stone nidus was seen as she was quite dilated proximally. There was endoscopic clearance noted. A 6 x 24 double-J ureteral stent was passed with distal tail in situ. Bladder was completely emptied and she tolerated the procedure well. I recommend that she obtain a KUB the day before her appointment on September 10 at 9 a.m. She is provided tramadol 50 mg, #30; Azo p.r.n.; Levaquin 500 mg for 7 days; VESIcare 5 mg, #10; Colace p.r.n. She will follow up with me next , September 11 at 8 a.m. for cysto stent pull if there is no evidence of persistent stone nidus in the ureteral course. Job ID: [id number] [facility]
== END 2019-09-05 16:15 | disposition home or self-care (01) ==
LOC: EEVIPCON → SDC 09:33
PROVIDERS: ATTEND Urology
PROC: 0T778DZ Dilation of Left Ureter with Intraluminal Device, Via Natural or Artificial Opening Endoscopic (ICD-10-PCS; principal; 2019-09-05)
PROC: 0TF78ZZ Fragmentation in Left Ureter, Via Natural or Artificial Opening Endoscopic (ICD-10-PCS; principal; 2019-09-05)
DX: N13.2 Hydronephrosis with renal and ureteral calculous obstruction (principal); K58.9 Irritable bowel syndrome, unspecified; E66.9 Obesity, unspecified; Z68.33 Body mass index [BMI] 33.0-33.9, adult; Z79.899 Other long term (current) drug therapy; Z88.1 Allergy status to other antibiotic agents; Z88.2 Allergy status to sulfonamides; Z88.5 Allergy status to narcotic agent; Z88.8 Allergy status to other drugs, medicaments and biological substances; Z91.048 Other nonmedicinal substance allergy status
CPT/HCPCS: 74018; 74420; 82365; 88300; C1758; C1769; J1100; J1956; J2001; J2405; J2704; J3010; Q0163

== ENCOUNTER 2019-09-10 08:28 | Outpatient (CLI) | payer BC ==
--- NOTE | 2019-09-10 08:59 | RAD ---
KUB: 09/10/2019 COMPARISON: 09/05/2019 HISTORY: Renal stone disease FINDINGS: Prior examination demonstrated a calcification within the left hemipelvis measuring 9-10 mm . That calcification is no longer visualized suggesting a distal left ureteral calculus which has been removed. There is a left double-J ureteral stent in place. No discrete calcification is seen lynne ng the course of the left double-J ureteral stent. Multiple stable pelvic calcifications are noted. The bowel gas pattern is nonobstructed. IMPRESSION: KUB as detailed above.
== END 2019-09-10 08:29 | disposition home or self-care (01) ==
LOC: RAD 08:28
PROVIDERS: ATTEND Urology
DX: N20.1 Calculus of ureter (principal)
CPT/HCPCS: 74018

== ENCOUNTER 2019-12-22 12:17 | Outpatient (CLI) | payer BC ==
--- NOTE | 2019-12-22 12:51 | RAD ---
XR Abdomen 1 View/KUB HISTORY: Ureteral calculi, a renal cyst, status post lithotripsy COMPARISON: 09/10/2019 FINDINGS: There is been interval removal of the left-sided ureteral stent. Multiple calcific densitie s in the pelvis are stable.
--- NOTE | 2019-12-22 13:21 | ULT ---
Exam: Bilateral renal ultrasound HISTORY: Renal calculi. Status post surgery. COMPARISON: None FINDINGS: Right kidney: Normal cortical echotexture. No hydronephrosis. 0.5 cm echogenic focus in the cortex. N ephrolithiasis. Right kidney measurements: 12.2 x 4.9 x 4.8 cm. Left kidney: Normal cortical echotexture. No hydronephrosis Left kidney measurements 5.3 x 4.6 x 11.7 cm. Urinary bladder: Normal mucosa. Prevoid volume is 504 mL. Post void volume is 15 mL IMPRESSION: 1. No hydronephrosis 2. Echogenic focus in the right renal cortex, likely representing nephrolithiasis. Correlation made w ith CT from 09/03/2019 does not demonstrate any right renal parenchymal or pelvic calculi.
== END 2019-12-22 12:18 | disposition home or self-care (01) ==
LOC: BICULT 12:17
PROVIDERS: ATTEND Urology
DX: N20.1 Calculus of ureter (principal); N28.1 Cyst of kidney, acquired; R93.421 Abnormal radiologic findings on diagnostic imaging of right kidney; Z98.890 Other specified postprocedural states
CPT/HCPCS: 36415; 74018; 76770; 80048; 81001; 83970; 84550

== ENCOUNTER 2020-04-16 07:44 | Outpatient (CLI) | payer BC ==
--- NOTE | 2020-04-16 12:16 | NM ---
Nuclear medicine parathyroid scintigraphy and SPECT: 04/16/2020 HISTORY: 49-year-old female with "hyperparathyroidism, unspecified" TECHNIQUE: IV injection of 25.5 mCi technetium 99m sestamibi. Planar scintigraphy in 3 views, immediately, at one hour, and 2 hours. SPECT performed in [address] performed from adelfo to skull base. Direct-CT fusion images evaluated. FINDINGS: There is no focus of asymmetrical sestamibi uptake to indicate parathyroid adenoma. IMPRESSION: No parathyroid adenoma identified.
== END 2020-04-16 07:45 | disposition home or self-care (01) ==
LOC: NM 07:44
PROVIDERS: ATTEND Specialist
DX: E21.3 Hyperparathyroidism, unspecified (principal)
CPT/HCPCS: 78072; A9500

== ENCOUNTER 2020-06-15 13:36 | Outpatient (CLI) | payer BC ==
--- NOTE | 2020-06-15 14:40 | CT ---
CT ABDOMEN AND PELVIS WITHOUT CONTRAST USING STONE PROTOCOL: 06/15/20 HISTORY: Left flank pain with painful urination and hematuria. FINDINGS: Absence of oral and IV contrast reduces the sensitivity of the exam particularly for evaluation of so lid organs and bowel. The lung bases are clear. There is a 13 mm cyst in the dome of the liver. No ca lcified gallstones are seen. No free air or free fluid is noted in the abdomen or pelvis. A normal ap pearing appendix is present. The small bowel loops are not abnormally dilated. No calculi are seen in the kidneys, ureters or the urinary bladder. No hydroureteronephrosis is noted on either side. Uterus and ovaries are present. There is a 3 cm fat containing right adnexal mass co nsistent with dermoid. There is no evidence of aneurysmal dilatation of the abdominal aorta. There are degenerative changes in the spine. IMPRESSION: 1. No CT evidence of urinary tract calculi or obstruction. 2. Hepatic cyst. 3. A 3 cm right ovarian dermoid. POS: [facility]
[2020-06-15 17:29] LABS: Bacteria/HPF None Seen HPF (None Seen); Bilirubin Negative (Negative); Blood, Urine Negative (Negative); Clarity Clear (Clear); Glucose, Urine (Dipstick) Normal (Negative); Ketone, Urine Negative (Negative); Leukocyte Negative Leu/uL (Negative); Nitrite Negative (Negative); Protein, Urine (Dipstick) Negative (Neg-Trace); RBC/HPF 0-3 HPF (0-3); Specific Gravity, Urine 1.018 (1.002-1.036); Urobilinogen Normal mg/dL (Less than 2); WBC/HPF 0-3 HPF (0-3); pH, Urine 6.5 (5.0-9.0)
[2020-06-15 17:32] LABS: Urine Culture Reflex No No
== END 2020-06-15 13:37 | disposition home or self-care (01) ==
LOC: CT 13:36
PROVIDERS: ATTEND Urology
DX: R10.9 Unspecified abdominal pain (principal); N20.0 Calculus of kidney; K76.89 Other specified diseases of liver; D27.0 Benign neoplasm of right ovary; N28.1 Cyst of kidney, acquired
CPT/HCPCS: 74176; 81001

== ENCOUNTER 2020-09-08 14:14 | Outpatient (CLI) | payer BC ==
--- NOTE | 2020-09-08 18:51 | ULT ---
BILATERAL RENAL ULTRASOUND: Date: 09/08/2020 HISTORY: Renal cysts. COMPARISON: 06/15/2020 exam. FINDINGS: Real-time imaging of the right and left kidneys were performed. The right kidney measures 11.6 cm and the left kidney measures 10.0 cm in size. There is cortical scarring involving the left kidney and c ortical thinning which is most pronounced in the upper and lower pole region of the left kidney. No c yst, mass, or obstruction. Bladder region is unremarkable. IMPRESSION: Cortical thinning involving the left kidney, which is within normal limits of size. POS: [facility]
--- NOTE | 2020-09-08 18:52 | RAD ---
KUB: 09/08/20 HISTORY: Renal cyst. The bowel gas pattern appears nonobstructive. No renal calculi are identified. Arthritic changes of t he spine are present. IMPRESSION: No acute findings. There is calcification seen to the left of the L4 transverse process but on a CT examination this is shown to represent a phlebolith. POS: [facility]
== END 2020-09-08 14:15 | disposition home or self-care (01) ==
LOC: BICULT 14:14
PROVIDERS: ATTEND Urology
DX: N28.1 Cyst of kidney, acquired (principal); R79.89 Other specified abnormal findings of blood chemistry; N20.0 Calculus of kidney; N28.89 Other specified disorders of kidney and ureter; M51.86 Other intervertebral disc disorders, lumbar region
CPT/HCPCS: 36415; 74018; 76770; 80048; 81001; 83970

== ENCOUNTER 2020-11-12 02:06 | Emergency (ER) | payer BC ==
[2020-11-12 03:07] LABS: Bilirubin Negative (Negative); Blood, Urine Negative (Negative); Clarity Clear (Clear); Glucose, Urine (Dipstick) Normal (Negative); Ketone, Urine Negative (Negative); Leukocyte Negative Leu/uL (Negative); Nitrite Negative (Negative); Protein, Urine (Dipstick) Negative (Neg-Trace); Specific Gravity, Urine 1.024 (1.002-1.036); Urobilinogen Normal mg/dL (Less than 2); pH, Urine 6.5 (5.0-9.0)
[2020-11-12 03:26] LABS: Pregnancy Test - Urine (BHCG) Negative (Negative); Pregu Control Background? CLEAR/WHITE (CLR/WHITE); Pregu Control Bar Appear? YES (CONTROL BAR)
[2020-11-12 03:27] LABS: Specific Gravity 1.024 (1.002-1.036)
[2020-11-12] MEDS ORDERED: Fentanyl 100 MCG/2 ML VIAL ONE (03:42)
== END 2020-11-12 03:35 | disposition home or self-care (01) ==
LOC: ERS 02:06
DX: M54.5 Low back pain (principal); N83.291 Other ovarian cyst, right side; N26.1 Atrophy of kidney (terminal)
CPT/HCPCS: 74176; 81003; 81025; 87077; 87086; 96372; J3010

== ENCOUNTER 2020-11-13 11:48 | Emergency (ER) | payer BC, SELFPAY ==
[2020-11-13 13:46] LABS: #Eosinphils 0.2 thou/uL (0.0-0.7); #Lymphocytes 2.3 thou/uL (1.20-3.40); #Monocytes 0.7 thou/uL (0.11-0.59); #Neutrophils 6.1 thou/uL (1.40-6.50); %Basophils 0.4 % (0.0-1.0); %Eosinophils 1.8 % (0.0-10.0); %Lymphocytes 24.3 % (21.0-51.0); %Monocytes 7.1 % (0.0-10.0); %Neutrophils 66.4 % (42.0-75.0); Hemoglobin 12.4 g/dL (12.0-16.0); Mean Corpuscular HGB CONC 33.6 g/dL (32.0-36.0); Mean Corpuscular Hemoglobin 31.8 pg (27.0-31.0); Mean Corpuscular Volume 94.4 fL (78.0-98.0); Mean Platelet Volume 6.9 fL (7.4-10.4); Platelet Count 350 thou/uL (130-400); RBC Distribution Width 12.1 % (11.5-14.5); Red Blood Cell (RBC) Count 3.92 mill/uL (4.20-5.40); White Blood Cell (WBC) Count 9.2 thou/uL (4.8-10.8)
[2020-11-13] MEDS ORDERED: Morphine 4 MG/ML VIAL ONE (13:46)
[2020-11-13] MEDS ORDERED: Ondansetron PF 4 MG/2 ML Vial ONE (13:46)
[2020-11-13 14:05] LABS: ALT (SGPT) 15 U/L (8-55); AST (SGOT) 20 U/L (5-34); Albumin 3.9 g/dL (3.5-5.0); Alkaline Phosphatase 74 U/L (40-110); Anion Gap 13 mmol/L (10-20); BUN (Urea Nitrogen) 15 mg/dL (9.8-20.1); Bilirubin, Total 0.3 mg/dL (0.2-1.2); Calc. Creatinine Clearance 0 mL/min (70-130); Calcium 8.9 mg/dL (7.8-10.44); Carbon Dioxide 26 mmol/L (22-29); Chloride 102 mmol/L (98-107); Globulin 3.5 g/dL (2.4-3.5); Glucose 95 mg/dL (70-105); Lipase 56 U/L (8-78); Potassium 4.3 mmol/L (3.5-5.1); Protein, Total 7.4 g/dL (6.0-8.3); Sodium 137 mmol/L (136-145)
--- NOTE | 2020-11-13 14:23 | ULT ---
PELVIC ULTRASOUND: Date: 11/13/2020 COMPARISON: CT abdomen/pelvis 11/12/2020. HISTORY: Pelvic pain. TECHNIQUE: Multiplanar Sidhu scale and color Doppler images were obtained in a transabdominal and transvaginal pe lvic ultrasound. FINDINGS: There is a nabothian cyst in the cervix measuring 1.1 cm in size. The uterus is normal in size and ap pearance without focal abnormality. The endometrial stripe is normal in thickness measuring 3.0 mm. No free fluid is seen in the pelvis. Neither ovary is able to be visualized on this exam. IMPRESSION: Nabothian cyst. POS: [facility]
[2020-11-13] MEDS ORDERED: Ketorolac Tromethamine 30 MG/ML VIAL ONE (15:16)
--- NOTE | 2020-11-13 15:56 | CT ---
EXAM: ABDOMEN AND PELVIC CT SCAN WITH IV CONTRAST: 11/13/20 HISTORY: Abdominal pain. Bilateral flank pain, right greater than left. COMPARISON: Noncontrast study, 11/12/20. Lung bases are clear. There are two circumscribed low attenuation foci, one measuring approximately 1 .4 cm in size in the dome of the liver, very small one also noted in the medial left lobe, 0.5 cm in size which are stable from prior exam. Small right renal hypodensity favored to be a small cyst incom pletely characterized, 0.8 cm. Stable small scarred left kidney. No renal hydronephrosis. No evidence for renal calculus or obstructing calculus. The gallbladder appears unremarkable. No common duct or intrahepatic dilatation. Pancreas region appears unremarkable. Adrenal glands are unremarkable. No evidence for large or small bowel obstruction. No CT evidence for acute appendicitis. No abscess or abnormal fluid collection within the abdomen or pelvis. Stable appearing 2.4 cm dermoid in the right adnexal region. IMPRESSION: No significant acute process. Stable nonemergent findings as above, unchanged from yesterday's exam. POS: [facility]
[2020-11-17 21:57] LABS: Chlamydia by PCR Not Detected (NotDetected); GC by PCR Not Detected (NotDetected)
== END 2020-11-13 17:07 | disposition home or self-care (01) ==
LOC: ERS 11:48 → EEVIPCON 11:48 → ERS 17:07
DX: N88.8 Other specified noninflammatory disorders of cervix uteri (principal); R11.0 Nausea
CPT/HCPCS: 36415; 74177; 76856; 80053; 83690; 85025; 87480; 87491; 87510; 87591; 87660; 96374; 96375; J1885; J2270; J2405

== ENCOUNTER 2021-01-05 10:22 | Outpatient (CLI) | payer BC | END 2021-01-05 10:23 | disposition home or self-care (01) | LOC: BICULT 10:22 → MERGE 10:22 → BICULT 10:23 | PROVIDERS: ATTEND Internal Medicine Gastroenterology | DX: R10.9 Unspecified abdominal pain (principal); R11.0 Nausea; R93.421 Abnormal radiologic findings on diagnostic imaging of right kidney; K76.9 Liver disease, unspecified | CPT/HCPCS: 76705 ==

== ENCOUNTER 2021-08-17 14:59 | Outpatient (CLI) | payer BC | END 2021-08-17 15:00 | disposition home or self-care (01) | LOC: BICULT 14:59 | PROVIDERS: ATTEND Urology | DX: N28.1 Cyst of kidney, acquired (principal); N20.0 Calculus of kidney; R79.89 Other specified abnormal findings of blood chemistry; N27.0 Small kidney, unilateral; R93.421 Abnormal radiologic findings on diagnostic imaging of right kidney; Z87.442 Personal history of urinary calculi | CPT/HCPCS: 74018; 76770 ==

== ENCOUNTER 2021-09-21 13:26 | Outpatient (CLI) | payer BC | END 2021-09-21 13:27 | disposition home or self-care (01) | LOC: CT 13:26 | PROVIDERS: ATTEND Specialist | DX: E21.3 Hyperparathyroidism, unspecified (principal) | CPT/HCPCS: 70492; 82565 ==

== ENCOUNTER 2023-09-10 12:27 | Outpatient (CLI) | payer BC ==
[~2023-09-10 12:27] MED LIST changes: +Furosemide 40 MG/4 ML VIAL ONE; -Iopamidol-370 76% 500 ML 1 ML ONE
== END 2023-09-10 12:28 | disposition home or self-care (01) ==
LOC: NM 12:27
PROVIDERS: ATTEND Urology
DX: N20.0 Calculus of kidney (principal); N26.1 Atrophy of kidney (terminal)
CPT/HCPCS: 78708; A4641; A9562; J1940